=== PATIENT | male | born 1970 | race Two or more races ===

== ENCOUNTER 2024-10-07 11:46 | Emergency (ER) | payer BC, OTHER ==
[~2024-10-07] VITALS: Ht 162.6 cm; Wt 70.0 kg
[2024-10-07] MEDS ORDERED: CEFD300C2 PO (14:53)
[2024-10-07] MEDS ORDERED: NAP500T PO (14:53)
--- NOTE | 2024-10-07 14:53 | ED.PDOC ---
HPI Comments 54 year old male presented to the [facility] with a laceration to his left dorsal thumb about 5 cm long deep to subcu injured the extensor tendon Chief Complaint: Laceration Time Seen by MD: 12:17 Primary Care Provider: DAVID Barnes Notes: Nurses Notes, Medications, Allergies Allergies: Coded Allergies: NO KNOWN ALLERGIES (Unverified , 10/07/24) Home Meds Active Scripts Naproxen (NAPROSYN TABLET) 500 Mg Tb, 1 TAB PO BID PRN for 10 Days, #20 TAB 1 Refill Prov:TANA KYLE MD 10/07/24 Cefdinir (Cefdinir) 300 Mg Cap, 1 CAP PO BID for 10 Days, #20 CAP Prov:TANA KYLE MD 10/07/24 Information Source: Patient Mode of Arrival: Ambulatory Severity: Moderate Severity of Laceration: Controlled Bleeding Complexity: Intermediate Timing: Hours, Came on: Suddenly Laceration Location: Hand, Digit #1 Mechanism: Metal, Other (Saw electric) Last Tetanus: UTD Laceration Length (cm): 5 Skin Type: Jagged, Irregular Depth of Injury: Skin, SQ, Tendon Tendon Injury: 75% Tender: Moderate Discharge: Bloody Associated Signs and Symptoms: Weakness, Bleeding Past Medical History PAST MEDICAL HISTORY: Denies Family History Family History: Reviewed,noncontributory to illness, No family hx of Cancer, No family hx of DM, No family hx of Heart zenia, No family hx of HTN, No family hx ofKidney zenia, No family hx of Liver zenia, No family hx of Lung zenia, No family hx of Stroke Social History Smoker: Non-Smoker Alcohol: Denies ETOH Use Drugs: Denies Drug Use Lives In: Home Constitutional: denies: chills, diaphoresis, fatigue, fever, malaise, sweats, weakness, others EENTM: denies: blurred vision, double vision, ear bleeding, ear discharge, ear drainage, ear pain, ear ringing, eye pain, eye redness, hearing loss, mouth pain, mouth swelling, nasal discharge, nose bleeding, nose congestion, nose pain, photophobia, tearing, throat pain, throat swelling, voice changes, others Respiratory: denies: cough, hemoptysis, orthopnea, SOB at rest, shortness of breath, SOB with excertion, stridor, wheezing, others Cardiovascular: denies: chest pain, dizzy spells, diaphoresis, Dyspnea on exertion, edema, irregular heart beat, left arm pain, lightheadedness, palpitations, PND, syncope, others Gastrointestinal: denies: abdomen distended, abdominal pain, blood streaked bowels, constipated, diarrhea, dysphagia, difficulty swallowing, hematemesis, melena, nausea, poor appetite, poor fluid intake, rectal bleeding, rectal pain, vomiting, others Genitourinary: denies: burning, dysuria, flank pain, frequency, hematuria, incontinence, penile discharge, penile sore, pain, testicle pain, testicle swelling, urgency, others Neurological: denies: dizziness, fainting, headache, left sided numbness, left sided weakness, numbness, paresthesia, pre-existing deficit, right sided numbness, right sided weakness, seizure, speech problems, tingling, tremors, weakness, others Musculoskeletal: denies: back pain, gout, joint pain, joint swelling, muscle pain, muscle stiffness, neck pain, others Integumetry: reports: laceration, others (Dorsal thumb left side 5 cm long deep to subcu involving the extensor tendon); denies: bruises, change in color, change in hair/nails, dryness, lesions, lumps, rash, wounds Allergic/Immunocompromised: denies: Difficulty Healing, Frequent Infections, Hives, Itching, others Endocrine: denies: excessive hunger, excessive sweating, excessive thirst, excessive urination, flushing, intolerance to cold, intolerance to heat, unexplained weight gain, unexplained weight loss, others Psychiatric: denies: anxiety, bipolar disorder, depression, hopeless, panic disorder, schizophrenia, sleepless, suicidal, others All Other Systems: Reviewed and Negative Physical Exam General Appearance: Mild Distress HEENT: Normal ENT Inspection, Pharynx Normal, TMs Normal Neck: Full Range of Motion, Non-Tender, Normal, Normal Inspection Respiratory: Chest Non-Tender, Lungs Clear, No Accessory Muscle Use, No Respiratory Distress, Normal Breath Sounds Cardiovascular: No Edema, No JVD, No Murmur, No Gallop, Normal Peripheral Pulses, Regular Rate/Rhythm Breast Exam: Deferred Gastrointestinal: No Organomegaly, Non Tender, No Pulsatile Mass, Normal Bowel Sounds, Soft Genitalia: Deferred Pelvic: Deferred Rectal: Deferred Extremities: Other (Left hand thumb dorsal aspect 5 cm long deep to subcu involving the extensor tendon since sensation intact morbidity intact except for a weak flexure) Neurologic: Alert, volunteer coordinator II-XII nml as Tested, No Motor Deficits, Normal Affect, Normal Mood, No Sensory Deficits Cerebellar Function: Normal Reflexes: Normal Skin: Dry, Lacerations, Normal Color, Warm Peripheral Pulses: 1+ carotid (R), 1+ carotid (L) Lymphatic: No Adenopathy Was a procedure done? Was a procedure done?: Yes Sedation Sedation?: No Sedation provider statement: no Laceration Repair : Location Thumb left hand Length 5 cm Anesthetic: Lidocaine, Without epi Laceration Repair Prep: Varsha-Shabana, by Irrigation, Manual Scrub Laceration Repair Wound Comple: layered repair (2 extensor tendon repaired), debridement, extensive undermining, wound margins Laceration Repair: Number of sutures (9 include repaired tendon), Nylon, Chromic Informed consent obtained: No Risks, benefits, and alternati: No Notes Accepted the procedure well Differential diagnosis Generic Laceration: Tendon Injury, Laceration Differential Diagnosis: N/A X-Ray, Labs, Meds, VS Vital Signs Date Time Temp Pulse Resp B/P (MAP) Pulse Ox O2 Delivery O2 Flow Rate FiO2 10/07/24 15:00 98.9 70 20 164/83 (110) 98 98.9 10/07/24 15:00 70 20 98 Room Air 10/07/24 12:02 98.5 64 16 170/87 (114) 97 98.5 Current Medications Medications (Trade) Dose Ordered Sig/Andria Route Start Time Stop Time Status Last Admin Ceftriaxone Sodium (Rocephin) 1,000 mg ONCE ONCE IM 10/07/24 15:00 10/07/24 15:01 DC 10/07/24 15:11 X-Ray, Labs, Meds, VS Comment [facility] course eventful Laceration was deep to subcu and repaired including the tendon extensor Dressing and splint applied Patient will be following in two days Time of 1ST Reevaluation: 14:49 Reevaluation 1ST: Improved Consultation: PCP Patient Education/Counseling: Diagnosis, Treatment, Prognosis, Need For Follow Up Family Education/Counseling: Diagnosis, Treatment, Prognosis, Need For Follow Up Departure 1 Departure Time of Disposition: 14:50 Impression: Primary Impression: Laceration of thumb with tendon involvement Qualified Codes: S61.012A - Laceration without foreign body of left thumb without damage to nail, initial encounter Disposition: HOME / SELF CARE / HOMELESS Condition: Fair Additional Instructions: Keep splint on until you follow up Keep the wound clean and dry Follow up in 48 hours e-Prescriptions Naproxen (NAPROSYN TABLET) 500 Mg Tb 1 TAB PO BID PRN for 10 Days, #20 TAB 1 Refill Prov: TANA KYLE MD 10/07/24 Cefdinir (Cefdinir) 300 Mg Cap 1 CAP PO BID for 10 Days, #20 CAP Prov: TANA KYLE MD 10/07/24 Discharged With: Self Critical Care Note Critical Care Time?: No Stability Stability form required: No Heart Score Heart Score: Heart Score Response (Comments) Value History N/A 0 EKG N/A 0 Age 45-64 1 Risk Factors No known risk factors 0 Troponin N/A 0 Total 1 TANA KYLE MD Oct 07, 2024 14:53
[2024-10-07] MEDS: cefTRIAXone W LIDOCAINE 1 GM IM IM ONE (14:58)
[2024-10-07 15:00] VITALS: BP 164/83; PULSE 70; RESP 20; TEMP 98.9; O2SAT 98
[2024-10-07] MEDS: cefTRIAXone SOD 1,000 MG VL IM ONE (15:11)
== END 2024-10-07 15:16 | disposition home or self-care (01) ==
LOC: ER 11:46
DX: S61.012A Laceration without foreign body of left thumb without damage to nail, initial encounter (principal); Z79.899 Other long term (current) drug therapy; X58.XXXA Exposure to other specified factors, initial encounter; Y93.89 Activity, other specified; Y92.89 Other specified places as the place of occurrence of the external cause; Y99.8 Other external cause status
CPT/HCPCS: 13121; 96372; 99285; J0696; J2003